=== PATIENT | male | born 1960 | race Caucasian/White ===

== ENCOUNTER 2018-06-28 05:21 | Day surgery (SDC) | payer BC ==
[2018-06-28] MEDS ORDERED: DEXAMETHASONE 4 MG/ML 1ML VIAL IVP ONE (05:22)
[2018-06-28] MEDS ORDERED: KETOROLAC 30 MG/ML VIAL IVP ONE ×2 (05:22→08:37)
[2018-06-28] MEDS ORDERED: FENTANYL PF 100MCG/2ML VIAL IV ONE (05:22)
[2018-06-28] MEDS ORDERED: LIDOCAINE 2% MDV (20MG/ML) 20ML VIAL IV ONE (05:22)
[2018-06-28] MEDS ORDERED: PROPOFOL 10 MG/ML VIAL IV ONE (05:22)
[2018-06-28] MEDS ORDERED: ONDANSETRON HCL IV 4 MG/2 ML VIAL IVP ONE (05:22)
[2018-06-28] MEDS ORDERED: BUPIVACAINE 0.25% W/EPI MPF 30ML VIAL SQ ONE (07:45)
[2018-06-28] MEDS ORDERED: IBUPROFEN 400 MG TABLET PO ONE (08:50)
--- NOTE | 2018-06-29 07:10 | Operative Note ---
DATE OF SURGERY: 06/28/2018 Surgeon: Samuel Hannon DO PREOPERATIVE DIAGNOSIS: Torn medial meniscus of the left knee. POSTOPERATIVE DIAGNOSIS: 1. Torn medial meniscus of the left knee. 2. Chondromalacia of the patella, trochlea, and medial femoral condyle, left knee. OPERATION: 1. Arthroscopic partial medial meniscectomy, left knee. 2. Arthroscopic chondroplasty of medial femoral condyle, patella, and trochlea, left knee. DESCRIPTION OF PROCEDURE: This 58-year-old male was taken to the operating room and placed in the supine position on the operating room table where general anesthetic was administered. The left lower extremity was elevated, exsanguinated, and the tourniquet inflated to 300 mmHg. Arthroscopic knee sharma applied. Left knee prepped with Hibiclens and draped in the usual sterile fashion. An inferolateral portal was established for the 4 mm arthroscope, and initial evaluation of the joint demonstrated normal appearance of the suprapatellar pouch but significant chondromalacia of the patellofemoral joint was identified with grade 3 changes noted in the median ridge at the patella as well as the center of the trochlea. This lesion on the trochlea was approximately 1.5 to 2 cm in width and extended the entire length of the trochlea. Loose fragment or articular cartilage was present, and through an inferomedial portal, chondroplasty was performed there and also of the median ridge at the patella. It was then re-probed and it was confirmed to be stable. Loose pieces of articular cartilage were suctioned from the gutters. The medial compartment was entered, and a complex tear of the posterior horn of the medial meniscus was present. There were both flap and horizontal cleavage components. We resected the loose flap and subsequently resected the area of horizontal cleavage component which was at about the 12-o'clock position. The meniscus was smoothed and tapered in each direction to form a smooth, stable contoured surface. It was then re-probed and confirmed to be stable. The patient also had multiple flap tears of the articular cartilage of the lateral aspect of the medial femoral condyle. These were removed. There were rather extensive grade 3 changes involving approximately 2/3 of the articular surface of the weightbearing surface of the medial femoral condyle. Loose fragments of articular cartilage were removed and re-probed and confirmed to be stable. The intracondylar notch was normal. The lateral compartment was entered. Probing of the lateral meniscus and articular cartilage was normal. The joint was copiously irrigated and suctioned. All chips of meniscus and articular cartilage fragments were suctioned from the joint. The instruments were then removed and the portals infiltrated with 0.25% Marcaine with epinephrine. Sterile dressings applied. Tourniquet released and the patient taken to the recovery room in satisfactory condition. GROSS PATHOLOGY: This patient demonstrated grade 3 chondromalacia of the medial femoral condyle, trochlea, and patella. There was also a complex tear of the posterior horn of the medial meniscus as described above. CC: MADHURI Alvarado
== END 2018-06-28 09:05 | disposition home or self-care (01) ==
LOC: SUR 05:21
PROVIDERS: ATTEND Orthopaedic Surgery
DX: S83.232A Complex tear of medial meniscus, current injury, left knee, initial encounter (principal); M22.42 Chondromalacia patellae, left knee; J44.9 Chronic obstructive pulmonary disease, unspecified
CPT/HCPCS: 29881; 01400; J1885; J2405; J3010